=== PATIENT | male | born 1980 | race Caucasian/White ===

== ENCOUNTER 2019-04-05 13:50 | Emergency (ER) | payer OTHER, SELFPAY ==
[2019-04-05] VITALS (8 sets, daily range): BP systolic 120–151; BP diastolic 82–102; PULSE 81–99; RESP 12–18; TEMP 37; O2SAT 96–97; BMI 23.6
--- NOTE | 2019-04-05 14:11 | ED.VIS.GEN ---
History of Present Illness Chief Complaint: Mental Health Informant: Patient, Restaurant Kitchen And Service Manager Narrative: Patient arrives via EMS, apparently his girlfriend called EMS because apparently he was being threatening to her. He quit his job a few months ago, he ran out of money now he is homeless, he has decreased sleep. He stopped taking his medications. He has a history of bipolar. He does admit to visual hallucinations. Past Medical History Past Medical History: - - Bipolar disorder meeting Review of Systems All systems negative except as indicated General: Reports: - - Difficult to obtain a full review of systems secondary to his mental status, however he denies some of the below features. Cardiovascular: Denies: Chest pain Respiratory: Denies: Dyspnea Gastrointestinal: Denies: Abdominal pain Neurological: Denies: Headache, Weakness Psych: Reports: Anxiety Physical Exam General: Well nourished, - - Initially he is actively crying but he stops right away when he sees me. Head: Normocephalic ENT: Moist mucous membranes Cardiovascular: Regular rate, Regular rhythm Respiratory: No distress Abdomen: Soft, Nontender Back: Nontender Extremities: Nontender Skin: Normal color Neurological: Alert, Oriented x3 Psychological: - - Patient has a very labile affect, he is paranoid he is delusional. He does deny suicidal homicidal ideations. Diagnostic/Tx/Re-eval - Medical Decision Making Patient will be medically cleared. He will need to be psychiatrically evaluated and transferred for psychiatric treatment ED Disposition - Plan for ED Patient: Disposition: Psychiatric Hospital or Unit Diagnosis: Bipolar disorder, Acute psychosis
[2019-04-05 14:58] LABS: Absolute Lymphocyte Count 1.35 X10^3/uL (0.83-4.51); Absolute Neutrophil Count 7.9 X10^3/uL (2.0-7.7); Basophil# 0.08 X10^3/uL; Basophil% 0.8 % (0-1); Eosinophil# 0.06 X10^3/uL; Eosinophils% 0.6 % (0-5); Hematocrit 45.9 % (40-54); Hemoglobin 15.6 g/dL (13.0-16.5); Lymphocyte # 1.35 X10^3/ul (4.0); Lymphocyte % 13.2 % (19-41); Mean Corpuscular Hgb 30.1 pg (27.0-32.0); Mean Corpuscular Volume 88.4 fL (80-94); Mean Platelet Vol. 9.6 fl (6.2-12.0); Monocyte# 0.76 X10^3/uL; Monocyte% 7.5 % (0-10); NRBC Flagged by Analyzer 0 % (0-5); Neutrophil # 7.89 X10^3/uL (2.7-7.7); Neutrophil % 77.4 % (47-70); Platelet Count 271 K/mm3 (150-450); RBC Distribution Width SD 39.4 fl (35.1-43.9); Red Blood Count 5.19 M/mm3 (4.6-6.2); White Blood Count 10.2 K/mm3 (4.4-11.0)
[2019-04-05 15:18] LABS: Anion Gap 6 (5-15); BUN 12 mg/dL (7-18); BUN/Creat Ratio 13.3 RATIO (10-20); Calcium,Total 8.9 mg/dL (8.5-10.1); Chloride 105 mmol/L (98-107); EST Glomerular Filtration Rate 98 mL/min (>60); Est Glom Filt Rate - Afr Amer 119 mL/min (>60); Estimated Creatinine Clearance 105.56 ml/min; Glucose 106 mg/dL (74-106); Potassium 3.2 mmol/L (3.5-5.1); Sodium Level 138 mmol/L (136-145)
--- NOTE | 2019-04-05 15:20 | CM.ED ---
SOCIAL WORK ASSESSMENT INFORMANT: DR. NAVA REASON FOR REFERRAL: MENTAL HEALTH PATIENT PRESENTS TO EMERGENCY DEPT BY [facility]. PATIENT REPORTS WAS IN THE [place] AND ASSISTED BY THE [facility] [place]. PATIENT ADMITS TO PARANOIA. PATIENT WITH HX OF BIPOLAR DISORDER AND NOT TAKING MEDICATIONS. MARITAL/SOCIAL HX: LIVING SITUATION: PATIENT STATES RESIDES IN [facility] SUPPORT/RESOURCES: PATIENT STATES FOLLOWS WITH THE [facility]. EDUCATION/EMPLOYMENT HX: PATIENT EMPLOYED AT [employer] TREATMENT/HX: PATIENT REPORTS FOLLOWS WITH THE [facility]SELING C[facility] D/T HX OF BIPOLAR DISORDER. PATIENT STATES HAS BEEN HOSPITALIZED X2 IN THE PAST AT [facility]. SUBSTANCE ABUSE HX: PATIENT STATES ALCOHOL USE IN THE PAST. PATIENT DENIES ANY CURRENT USE. MENTAL STATUS EXAM: PATIENT ALERT AND ORIENTED X4 MEMORY: [facility] APPEARANCE/GENERAL BEHAVIOR: CLEAN/APPROPRIATE MOOD/AFFECT: ANXIOUS, LABILE COMMUNICATION PATTERN: RESPONDS TO QUESTIONS THOUGHT PROCESS: PARANOID, DELUSIONS GENERAL INTELLECTUAL FUNCTIONING: AVERAGE RISK TO SELF/OTHERS: PATIENT DENIES SUICIDAL OR HOMICIDAL IDEATIONS. ASSESSMENT: MET WITH PATIENT AT BEDSIDE. INTRODUCED ROLE AND REASON FOR REFERRAL. PATIENT STATES WAS AT THE [facility] [place] AND WAS ASSISTED BY PEOPLE AT [facility] [place]. PATIENT STATES VITALS WERE CHECKED AND THEY RECOMMENDED HE COME TO THE HOSPITAL FOR EVALUATION AND [facility] WAS CALLED. PATIENT REPORTS PARANOIA. DURING THIS WORKER'S CONVERSATION WITH PATIENT, PATIENT REACHING FOR THINGS THAT ARE NOT THERE. PATIENT STATES HASN'T BEEN SLEEPING AND STATES HAS BEEN TAKING HIS MEDICATIONS, HOWEVER, INFORMED DR. NAVA HE STOPPED TAKING MEDICATIONS. DISCUSSED CASE WITH DR. NAVA. DR. NAVA RECOMMENDING INPATIENT PSYCH HOSPITALIZATION. THIS WORKER TO WORK ON PLACEMENT. PLAN: PINK SLIP- INPATIENT PSYCH HOSPITALIZATION.
--- NOTE | 2019-04-05 15:20 | CM.ED ---
SOCIAL WORK PATIENT REQUIRES INPATIENT HOSPITALIZATION, PINK SLIPPED BY DR. NAVA. THIS WORKER TO WORK ON INPATIENT PSYCH HOSPITALIZATION.
[2019-04-05 15:26] LABS: Amphetamine Urine VISTA NEGATIVE (<1000 ng/mL); Barbiturate Urine VISTA NEGATIVE (< 200 ng/mL); Benzodiazepine Urine VISTA NEGATIVE (< 200 ng/mL); Cocaine Urine VISTA NEGATIVE (< 300 ng/mL); Ecstacy Urine VISTA NEGATIVE (< 500 ng/mL); Methadone Urine VISTA NEGATIVE (< 300 ng/mL); PCP Urine VISTA NEGATIVE (< 25 ng/mL); THC Urine VISTA NEGATIVE (< 50 ng/mL); Vista UDS pH Range 6
--- NOTE | 2019-04-05 15:28 | ED.RN ---
PT WITNESSED WALKING OUT OF DEPARTMENT, HRO MADE AWARE, TO RAMP TO SPEAK WITH PATIENT.
--- NOTE | 2019-04-05 15:50 | CM.ED ---
SOCIAL WORK CALL TO [facility], SPOKE WITH TRISTAN. PER TRISTAN, BEDS AVAILABLE. REFERRAL FAXED TO [facility] AT THIS TIME. LORENA BORJA, GANG VIBRATOR OPERATOR, RETAIL SALES ASSOCIATE SEASONAL.
--- NOTE | 2019-04-05 17:11 | CM.ED ---
SOCIAL WORK CALL TO [facility] TO CHECK STATUS OF REFERRAL, SPOKE WITH TRISTAN. PER TRISTAN, WORKER IS VERIFYING INSURANCE COVERAGE. WILL CALL THIS WORKER BACK. LORENA BORJA, CAMP ADVISOR, OR RN.
[2019-04-05] MEDS: LORazepam 1 MG Tablet PO (17:39)
--- NOTE | 2019-04-05 18:20 | CM.ED ---
SOCIAL WORK CALL TO [facility] TO CHECK STATUS OF REFERRAL, SPOKE WITH TRISTAN. TRISTAN REQUESTING TO CALL THIS WORKER BACK SHE NEEDS TO FOLLOW UP WITH ORTHOPEDIC SHOE FITTER. AWAITING CALL BACK AT THIS TIME. LORENA BORJA, MULTIMEDIA EDITOR, DECK MOLDER.
--- NOTE | 2019-04-05 18:53 | CM.ED ---
SOCIAL WORK CALL FROM TRISTAN WITH [facility]. PATIENT ACCEPTED BY DR. GOMEZ TO THE [facility]. NURSE TO CALL REPORT TO INTAKE AND THEY WILL TRANSFER TO UNIT: . UPDATED STAFF AND PATIENT. PATIENT GAVE PERMISSION FOR THIS WORKER TO CALL SIG MANPREET IGLESIAS TO UPDATE ON TRANSFER TO [facility]. LORENA BORJA, MOLDED RUBBER GOODS CUTTER, HEAD BANQUET WAITRESS.
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
== END 2019-04-05 20:35 ==
LOC: ED 14:42
PROVIDERS: Emergency Provider Emergency Medicine
DX: F31.9 Bipolar disorder, unspecified (principal); F23 Brief psychotic disorder
CPT/HCPCS: 36415; 80048; 80307; 80320; 85025; 99285; G0480

== ENCOUNTER 2019-04-19 12:11 | Emergency (ER) | payer OTHER, SELFPAY ==
[2019-04-05 13:52] VITALS: BMI 23.6
[2019-04-19 12:13] VITALS: BP 160/100; PULSE 99; RESP 16; TEMP 36.1; O2SAT 98; BMI 22.4
--- NOTE | 2019-04-19 12:15 | CM.ED ---
SOCIAL WORK PATIENT SENT IN BY CRISIS. REGISTERED MIDWIFE, ALESSANDRA HERE AND REPORTS PATIENT REQUIRES INPATIENT HOSPITALIZATION. STAFF UPDATED. PLAN: CRISIS TO WORK ON INPATIENT PSYCH HOSPITALIZATION ONCE MEDICALLY CLEARED. LORENA BORJA, SUPERVISOR/PORT DIRECTOR, MARINE ELECTRICIAN APPRENTICE.
--- NOTE | 2019-04-19 12:53 | ED.VIS.GEN ---
History of Present Illness Chief Complaint: Suicidal Informant: Patient Narrative: Patient brought to the ED by police from the counseling center. Patient was therefore follow-up appointment. He apparently admitted to suicidal thoughts with plan to shoot himself with a shotgun. When staff asked him if he had a shotgun he said no, but he knew how to get one. Patient was admitted earlier this month at [facility]. He is supposed to be on Seroquel and lithium. He tells me he is taking his lithium but rarely takes Seroquel, stating he does not like the way it makes him feel. He lives alone. He is currently on medical leave from his job. Past Medical History - Allergies and Home Meds Allergies/Adverse Reactions: Allergies apple Allergy (Verified 04/19/19 12:13) Food Allergy iqbal Allergy (Verified 04/19/19 12:13) Food Allergy kiwi Allergy (Verified 04/19/19 12:13) Food Allergy tree nut Allergy (Verified 04/19/19 12:13) Food Allergy Primary Care Physician: Care Physician,No Primary [Primary Care Provider] - Prior records reviewed: Yes Past Medical History: - - Reviewed Lives: Alone Smoking Status: Current every day smoker Review of Systems General: Denies: Chills, Fever Eyes: Denies: Visual changes - bilaterally Cardiovascular: Denies: Chest pain Respiratory: Denies: Dyspnea, Cough Gastrointestinal: Denies: Abdominal pain, Nausea, Vomiting, Diarrhea Musculoskeletal: Denies: Back pain, Extremity Pain Skin: Denies: Wounds Neurological: Denies: Headache Psych: Reports: Depression, Suicidal thoughts Hematologic: Denies: Easy bruising, Easy bleeding Allergy: Denies: Uticaria Physical Exam Vital Signs/Narrative: Vital Signs Temp Pulse Resp BP Pulse Ox 04/19/19 12:13 97 F L 99 16 160/100 H 98 Inital Vital Signs reviewed: Yes General: Well nourished, Well developed ENT: Moist mucous membranes Neck: Supple Cardiovascular: Regular rate, Regular rhythm Respiratory: No distress, CTA bilaterally Abdomen: Soft, Nontender Extremities: Nontender Skin: Normal color, No rash Neurological: Alert, Oriented x3, Normal Strength, Normal Sensation Psychological: Normal affect, - - During my interview, patient admits to suicidal thoughts, but denies intent. Diagnostic/Tx/Re-eval Laboratory Results 04/19/19 04/19/19 04/19/19 13:15 13:15 13:15 WBC 8.7 RBC 5.25 Hgb 15.9 Hct 46.6 MCV 88.8 MCH 30.3 MCHC 34.1 RDW Std Deviation 39.0 RDW Coeff of Adam 12.0 Plt Count 241 MPV 10.2 Immature Gran % (Auto) 0.300 Neut % (Auto) 76.9 H Lymph % (Auto) 13.7 L [place] % (Auto) 7.2 Eos % (Auto) 1.0 Baso % (Auto) 0.9 Absolute Neuts (auto) 6.7 Absolute Lymphs (auto) 1.19 Nucleated RBC % 0 Sodium 139 Potassium 3.6 Chloride 105 Carbon Dioxide 29.0 Anion Gap 5 BUN 11 Creatinine 0.77 Estim Creat Clear Calc 127.89 Est GFR (MDRD) Af Amer 143 Est GFR (MDRD) Non-Af 118 BUN/Creatinine Ratio 14.2 Glucose 94 Calcium 8.8 Urine Opiates Screen Urine Methadone Screen Ur Barbiturates Screen Ur Phencyclidine Scrn Ur Amphetamines Screen U Methamphetamin-MDMA U Benzodiazepines Scrn [place] < 0.20 L Urine Cocaine Screen U Cannabinoids Screen Ur Drug Screen Comment Ethyl Alcohol 8.0 04/19/19 13:45 WBC RBC Hgb Hct MCV MCH MCHC RDW Std Deviation RDW Coeff of Adam Plt Count MPV Immature Gran % (Auto) Neut % (Auto) Lymph % (Auto) [place] % (Auto) Eos % (Auto) Baso % (Auto) Absolute Neuts (auto) Absolute Lymphs (auto) Nucleated RBC % Sodium Potassium Chloride Carbon Dioxide Anion Gap BUN Creatinine Estim Creat Clear Calc Est GFR (MDRD) Af Amer Est GFR (MDRD) Non-Af BUN/Creatinine Ratio Glucose Calcium Urine Opiates Screen NEGATIVE Urine Methadone Screen NEGATIVE Ur Barbiturates Screen NEGATIVE Ur Phencyclidine Scrn NEGATIVE Ur Amphetamines Screen NEGATIVE U Methamphetamin-MDMA NEGATIVE U Benzodiazepines Scrn NEGATIVE [place] Urine Cocaine Screen NEGATIVE U Cannabinoids Screen NEGATIVE Ur Drug Screen Comment Ethyl Alcohol - Medical Decision Making Patient has been stable throughout his ED stay. Staff and counseling center advised that the had 3 different staff members here from the patient that he plans to kill himself a shotgun and had means to obtain one. Patient has been accepted in transfer at [facility]. ED Disposition - Plan for ED Patient: Disposition: Psychiatric Hospital or Unit Diagnosis: Suicidal ideation Referrals: Care Physician,No Primary [Primary Care Provider] -
[2019-04-19 13:29] LABS: Absolute Lymphocyte Count 1.19 X10^3/uL (0.83-4.51); Absolute Neutrophil Count 6.7 X10^3/uL (2.0-7.7); Basophil# 0.08 X10^3/uL; Basophil% 0.9 % (0-1); Eosinophil# 0.09 X10^3/uL; Hematocrit 46.6 % (40-54); Hemoglobin 15.9 g/dL (13.0-16.5); Lymphocyte # 1.19 X10^3/ul (4.0); Lymphocyte % 13.7 % (19-41); Mean Corp Hgb Conc 34.1 g/dL (32-36); Mean Corpuscular Hgb 30.3 pg (27.0-32.0); Mean Corpuscular Volume 88.8 fL (80-94); Mean Platelet Vol. 10.2 fl (6.2-12.0); Monocyte# 0.62 X10^3/uL; Monocyte% 7.2 % (0-10); NRBC Flagged by Analyzer 0 % (0-5); Neutrophil # 6.66 X10^3/uL (2.7-7.7); Neutrophil % 76.9 % (47-70); Platelet Count 241 K/mm3 (150-450); Red Blood Count 5.25 M/mm3 (4.6-6.2); White Blood Count 8.7 K/mm3 (4.4-11.0)
[2019-04-19 13:41] LABS: Anion Gap 5 (5-15); BUN 11 mg/dL (7-18); BUN/Creat Ratio 14.2 RATIO (10-20); Calcium,Total 8.8 mg/dL (8.5-10.1); Chloride 105 mmol/L (98-107); Creatinine, Serum 0.77 mg/dL (0.70-1.30); EST Glomerular Filtration Rate 118 mL/min (>60); Est Glom Filt Rate - Afr Amer 143 mL/min (>60); Estimated Creatinine Clearance 127.89 ml/min; Glucose 94 mg/dL (74-106); Potassium 3.6 mmol/L (3.5-5.1); Sodium Level 139 mmol/L (136-145)
[2019-04-19 13:51] VITALS: RESP 16
[2019-04-19 14:00] VITALS: RESP 16
[2019-04-19 14:09] LABS: Amphetamine Urine VISTA NEGATIVE (<1000 ng/mL); Barbiturate Urine VISTA NEGATIVE (< 200 ng/mL); Benzodiazepine Urine VISTA NEGATIVE (< 200 ng/mL); Cocaine Urine VISTA NEGATIVE (< 300 ng/mL); Ecstacy Urine VISTA NEGATIVE (< 500 ng/mL); Methadone Urine VISTA NEGATIVE (< 300 ng/mL); PCP Urine VISTA NEGATIVE (< 25 ng/mL); THC Urine VISTA NEGATIVE (< 50 ng/mL); Vista UDS pH Range 7
[2019-04-19 14:34] LABS: Lithium < 0.20 mmol/L (0.60-1.20)
--- NOTE | 2019-04-19 15:04 | CM.ED ---
SOCIAL WORK CRISIS HAS MADE REFERRAL TO [facility]. TOX SCREEN FAXED TO [facility] AT THIS TIME. LORENA BORJA, SHANK BONER, LABEL PRINTING MACHINIST.
[2019-04-19 15:27] VITALS: BP 114/81; PULSE 84; RESP 16; O2SAT 98
== END 2019-04-19 16:21 ==
PROVIDERS: Emergency Provider Emergency Medicine
DX: R45.851 Suicidal ideations (principal); F17.200 Nicotine dependence, unspecified, uncomplicated; Z91.018 Allergy to other foods; Z60.2 Problems related to living alone
CPT/HCPCS: 80048; 80178; 80307; 80320; 85025; 99284; G0480

== ENCOUNTER 2019-06-29 15:46 | Emergency (ER) | payer OTHER, SELFPAY ==
[2019-06-29 15:47] VITALS: BP 117/77; PULSE 100; RESP 17; TEMP 36.5; O2SAT 98; BMI 21.3
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
[2019-06-29 16:09] VITALS: RESP 16
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
[2019-06-29 16:42] VITALS: BP 110/70; PULSE 80; RESP 14; TEMP 36.6; O2SAT 98
== END 2019-06-29 16:57 | disposition home or self-care (01) ==
LOC: ED 16:38
PROVIDERS: Emergency Provider Emergency Medicine
DX: J70.5 Respiratory conditions due to smoke inhalation (principal)
CPT/HCPCS: 99283

== ENCOUNTER 2020-01-17 15:43 | Emergency (ER) | payer OTHER, SELFPAY ==
[2020-01-17] VITALS (9 sets, daily range): BP systolic 94–132; BP diastolic 58–71; PULSE 60–87; RESP 14–18; TEMP 36.8; O2SAT 96–98; BMI 21.4
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
[2020-01-17 16:39] LABS: Anion Gap 5 (5-15); BUN 15 mg/dL (7-18); BUN/Creat Ratio 18.9 RATIO (10-20); Calcium,Total 9.1 mg/dL (8.5-10.1); Chloride 106 mmol/L (98-107); Creatinine, Serum 0.79 mg/dL (0.70-1.30); EST Glomerular Filtration Rate 114 mL/min (>60); Est Glom Filt Rate - Afr Amer 138 mL/min (>60); Estimated Creatinine Clearance 118.35 ml/min; Glucose 117 mg/dL (74-106); Potassium 3.8 mmol/L (3.5-5.1); Sodium Level 140 mmol/L (136-145)
[2020-01-17 16:51] LABS: Absolute Lymphocyte Count 1.57 X10^3/uL (0.83-4.51); Absolute Neutrophil Count 3.5 X10^3/uL (2.0-7.7); Basophil# 0.07 X10^3/uL; Basophil% 1.2 % (0-1); Eosinophil# 0.11 X10^3/uL; Eosinophils% 1.9 % (0-5); Hematocrit 50.1 % (40-54); Lymphocyte # 1.57 X10^3/ul (4.0); Lymphocyte % 27.3 % (19-41); Mean Corp Hgb Conc 33.9 g/dL (32-36); Mean Corpuscular Volume 91.4 fL (80-94); Mean Platelet Vol. 10.2 fl (6.2-12.0); Monocyte# 0.54 X10^3/uL; Monocyte% 9.4 % (0-10); NRBC Flagged by Analyzer 0 % (0-5); Neutrophil # 3.45 X10^3/uL (2.7-7.7); Neutrophil % 59.9 % (47-70); Platelet Count 241 K/mm3 (150-450); RBC Distribution Width CV 12.4 % (11.6-14.6); RBC Distribution Width SD 41.2 fl (35.1-43.9); Red Blood Count 5.48 M/mm3 (4.6-6.2); White Blood Count 5.8 K/mm3 (4.4-11.0)
[2020-01-17 17:30] LABS: Amphetamine Urine VISTA NEGATIVE (<1000 ng/mL); Barbiturate Urine VISTA NEGATIVE (< 200 ng/mL); Benzodiazepine Urine VISTA NEGATIVE (< 200 ng/mL); Cocaine Urine VISTA NEGATIVE (< 300 ng/mL); Ecstacy Urine VISTA NEGATIVE (< 500 ng/mL); Methadone Urine VISTA NEGATIVE (< 300 ng/mL); PCP Urine VISTA NEGATIVE (< 25 ng/mL); THC Urine VISTA NEGATIVE (< 50 ng/mL); Vista UDS pH Range 6
--- NOTE | 2020-01-17 17:51 | ED.RN ---
SITTER REMAINS AT BEDSIDE.
[2020-01-17 17:58] LABS: Probe Check PASS; Specimen Processing Control PASS
--- NOTE | 2020-01-17 18:19 | NURSING ---
FAXED CHART TO [facility]
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
--- NOTE | 2020-01-17 23:17 | EKG12_ITS ---
Test Reason : [facility] Blood Pressure : / mmHG Vent. Rate : 050 BPM Atrial Rate : 050 BPM P-R Int : 162 ms QRS Dur : 080 ms QT Int : 422 ms P-R-T Axes : 062 072 056 degrees QTc Int : 384 ms Sinus bradycardia Otherwise normal ECG Confirmed by SABINO LINDO, FELICITAS ([id number]), greeting card editor MARÍA ELENA CANALES ([id number]) on 01/31/2020 10:21:51 AM Referred By: NIK Confirmed By:FELICITAS GALLO MD
[2020-01-17 23:44] LABS: AST(SGOT) 12 U/L (15-37); Alanine Aminotransfer ALT/SGPT 18 U/L (16-61); Alkaline Phosphatase 77 U/L (45-117); Bilirubin, Direct 0.19 mg/dL (0.00-0.30); Globulin 3.2 g/dL (2.2-4.2); Protein, Total 7.2 g/dL (6.4-8.2)
[2020-01-18] VITALS (13 sets, daily range): BP systolic 91–103; BP diastolic 54–67; PULSE 60–76; RESP 14–20; TEMP 36.8; O2SAT 95–97
--- NOTE | 2020-01-18 16:01 | ED.RN ---
PT OUT OF ED WITH [facility] FOR TRANSPORT TO [facility]. PT SKIN P/W/D, RESP EVEN AND UNLABORED, PT A&O X 3, NO DISTRESS NOTED.
== END 2020-01-18 16:03 ==
PROVIDERS: Emergency Provider Emergency Medicine
DX: R45.851 Suicidal ideations (principal); F31.9 Bipolar disorder, unspecified; F17.200 Nicotine dependence, unspecified, uncomplicated; Z91.018 Allergy to other foods
CPT/HCPCS: 80048; 80076; 80307; 80320; 85025; 87635; 93005; 99283; G2023; G0480; U0003

== ENCOUNTER 2021-03-23 22:11 | Emergency (ER) | payer SELFPAY ==
[2021-03-23 22:12] VITALS: PULSE 98; RESP 18; TEMP 36.6; O2SAT 97; BMI 21.5
--- NOTE | 2021-03-23 23:35 | EDS_ITS ---
HPI HPI - Psych History of Present Illness Chief Complaint: Mental Health Narrative Narrative: Patient arrives to the ED for mental status evaluation. He has a history of bipolar although he has not been on medications for the past 4 years per him. Apparently he has been more manic recently, more delusional is and the police have had to be involved with his care for the past week almost on a daily basis. He has no suicidal or homicidal ideations, he denies hallucinations although as I talked to him there are some significant delusions and paranoias. [facility] Medical History (Updated 03/23/21 @ 23:[address] Yfn Powell MD) Schizophrenia Home Medications NK 03/23/21 [History Last Taken Unknown] Allergy/AdvReac Type Severity Reaction Status Date / Time apple Allergy Food Verified 03/23/21 22:27 Allergy iqbal Allergy Food Verified 03/23/21 22:27 Allergy kiwi Allergy Food Verified 03/23/21 22:27 Allergy tree nut Allergy Food Verified 03/23/21 22:27 Allergy Social History Smoking Status: Current every day smoker tobacco type: cigarettes ROS ROS ED ROS Narrative Past medical history: Bipolar disorder Medications: Reviewed Social history: Noncontributory Review of systems: All systems negative except as indicated. He gives me a reasonable somatic review of systems. General: No fever Eyes: No visual changes ENT: No upper airway congestion, normal voice Neck: No neck pain Cardiovascular: No chest pain Respiratory: No shortness of breath or cough Gastrointestinal: No abdominal pain, nausea vomiting or diarrhea Genitourinary: No dysuria Musculoskeletal: Denies myalgias no difficulty with ambulation Skin: No rash Neurological: No memory loss, confusion or any focal weakness Psych: As in HPI Hematologic: No easy bleeding or easy bruising EXAM Physical Exam Narrative Exam Narrative: Physical exam General: Well nourished, Well developed, No Acute Distress. Well-appearing male. Head: Normocephalic, Atraumatic Eyes: Conjunctiva not pale ENT: Moist mucous membranes Neck: Supple, Nontender, No lymphadenopathy Cardiovascular: Regular rate, Regular rhythm Respiratory: No distress, CTA bilaterally Abdomen: Soft, Nontender, Nondistended Back: Nontender, Normal Inspection. Negative for: CVA tenderness Extremities: Nontender, No edema Skin: Normal color, No rash Neurological: Alert, Normal Strength, Normal Sensation Psychological: Patient has a bizarre affect, he does not have a hyperactive state, he does have delusions and paranoia as but no hallucinations no suicidal or homicidal ideations. Const Vital Signs: 03/23/21 22:12 Temperature 98 F Temperature Source Temporal Pulse Rate 98 Respiratory Rate 18 Pulse Ox 97 Oxygen Delivery Method Room Air MDM MDM MDM Narrative Medical decision making narrative: Patient has an unremarkable exam however he is manic and he does not have any medications he will need psychiatric admission. I will call the psychiatric liaison. Discharge Plan Triage Chief Complaint: Mental Health ED Provider: Yfn Powell Dx/Rx/DC Orders Clinical Impression: Bipolar disorder, Acute paranoia Prescriptions: No Action NK RF: 0 Primary Care Provider: Care Physician,No Primary Referrals: Care Physician,No Primary [Primary Care Provider] - Disposition Disposition: Transfer to Another Type [facility]
[2021-03-24] VITALS (8 sets, daily range): BP systolic 120–127; BP diastolic 72–81; PULSE 61–74; RESP 14–22; O2SAT 95–96
[2021-03-24 00:07] LABS: Absolute Lymphocyte Count 2.32 X10^3/uL (0.83-4.51); Absolute Neutrophil Count 3.9 X10^3/uL (2.0-7.7); Basophil# 0.06 X10^3/uL; Basophil% 0.9 % (0-1); Eosinophil# 0.13 X10^3/uL; Eosinophils% 1.9 % (0-5); Hematocrit 43.8 % (40-54); Hemoglobin 15.2 g/dL (13.0-16.5); Lymphocyte # 2.32 X10^3/ul (0.83-4.51); Lymphocyte % 33.2 % (19-41); Mean Corp Hgb Conc 34.7 g/dL (32-36); Mean Corpuscular Hgb 30.8 pg (27.0-32.0); Mean Corpuscular Volume 88.8 fL (80-94); Mean Platelet Vol. 9.9 fl (6.2-12.0); Monocyte# 0.59 X10^3/uL; Monocyte% 8.5 % (0-10); NRBC Flagged by Analyzer 0 % (0-5); Neutrophil # 3.86 X10^3/uL (2.7-7.7); Neutrophil % 55.2 % (47-70); Platelet Count 249 K/mm3 (150-450); RBC Distribution Width CV 12.6 % (11.6-14.6); RBC Distribution Width SD 40.7 fl (35.1-43.9); Red Blood Count 4.93 M/mm3 (4.6-6.2)
[2021-03-24 00:15] LABS: Anion Gap 5 (5-15); BUN 8 mg/dL (7-18); BUN/Creat Ratio 11.4 RATIO (10-20); Calcium,Total 9.2 mg/dL (8.5-10.1); Chloride 107 mmol/L (98-107); EST Glomerular Filtration Rate 130 mL/min (>60); Est Glom Filt Rate - Afr Amer 158 mL/min (>60); Glucose 84 mg/dL (74-106); Potassium 3.4 mmol/L (3.5-5.1); Sodium Level 140 mmol/L (136-145)
[2021-03-24 00:21] LABS: Amphetamine Urine VISTA NEGATIVE (<1000 ng/mL); Barbiturate Urine VISTA NEGATIVE (< 200 ng/mL); Benzodiazepine Urine VISTA NEGATIVE (< 200 ng/mL); Cocaine Urine VISTA NEGATIVE (< 300 ng/mL); Ecstacy Urine VISTA NEGATIVE (< 500 ng/mL); Methadone Urine VISTA NEGATIVE (< 300 ng/mL); PCP Urine VISTA NEGATIVE (< 25 ng/mL); THC Urine VISTA NEGATIVE (< 50 ng/mL); Vista UDS pH Range 5
[2021-03-24 00:44] LABS: Alcohol, Blood (Medical)-Serum < 3.0 mg/dL
--- NOTE | 2021-03-24 01:06 | ED.RN ---
crisis paged to see patient at this time
--- NOTE | 2021-03-24 01:12 | ED.RN ---
crisis made aware of patient they will be in to see patient
--- NOTE | 2021-03-24 05:01 | ED.RN ---
Geodon 20mg IM given into right deltoid. Unable to appropriately chart in MAR at this time, IS and Pharmacy aware.
[2021-03-24] MEDS: Ziprasidone IM 20 MG/ML VIAL IM (05:04)
--- NOTE | 2021-03-24 10:50 | CM.ED ---
SOCIAL WORK Patient has been accepted to [facility]. Call to Crisis to update on acceptance, [facility] to set up transport as patient is self-pay. Updated staff. Plan: MELISSA Hugo, COUTURE ALTERATIONS DRESSMAKER
== END 2021-03-24 13:13 | disposition other institution (70) ==
PROVIDERS: Emergency Provider Emergency Medicine
DX: F31.9 Bipolar disorder, unspecified (principal); F17.210 Nicotine dependence, cigarettes, uncomplicated; F20.9 Schizophrenia, unspecified; Z91.018 Allergy to other foods
CPT/HCPCS: 80048; 80307; 82077; 85025; 87426; 96372; 99285